=== PATIENT | male | born 1990 | race African-American/Black ===

== ENCOUNTER 2020-04-10 13:32 | Inpatient (IN) | payer MEDICAID ==
[2020-04-09 21:40] VITALS: BP 159/95
[~2020-04-10] VITALS: Ht 182.9 cm; Wt 126.3 kg
[2020-04-10] MEDS ORDERED: ONDANSETRON PF 4 MG/2 ML VIAL. IV ONE (13:45)
[2020-04-10] MEDS ORDERED: fentaNYL PF VIAL 100 MCG/2 ML VIAL IV ONE (13:45)
[2020-04-10 13:55] LABS: BASO % 1 % (0-3); EOS # 0.4 x10^3/uL (0.0-0.7); EOS % 6 % (0-3); HEMATOCRIT 32.7 % (39.0-53.0); HEMOGLOBIN 10.7 g/dL (13.0-17.5); LYMPH # 1.5 x10^3/uL (1.0-4.8); LYMPH % 26 % (24-48); MEAN CORPUSCULAR HEMOGLOBIN 26 pg (25-35); MEAN CORPUSCULAR HGB CONC 33 g/dL (31-37); MEAN CORPUSCULAR VOLUME 80 fL (79-100); MONO # 0.6 x10^3/uL (0.0-1.1); MONO % 10 % (0-9); NEUT # 3.2 x10^3/uL (1.8-7.7); NEUT % 57 % (31-73); PLATELET COUNT 294 x10^3/uL (140-400); RED BLOOD COUNT 4.08 x10^6/uL (4.30-5.70); RED CELL DISTRIBUTION WIDTH 14.7 % (11.5-14.5); WHITE BLOOD COUNT 5.6 x10^3/uL (4.0-11.0)
[2020-04-10] MEDS ORDERED: IOHEXOL 350 MG/ML 100 ML VIAL. IV ONE (14:00)
[2020-04-10 14:09] LABS: PROTHROMBIN TIME PATIENT 12.8 SEC (11.7-14.0)
[2020-04-10] MEDS ORDERED: CONTRAST GIVEN. MC PRN (14:15)
[2020-04-10 14:16] LABS: CALCIUM 7.5 mg/dL (8.5-10.1); CREATININE 16.4 mg/dL (0.7-1.3); GFR 4.2; POTASSIUM 5.2 mmol/L (3.5-5.1)
[2020-04-10 14:19] LABS: ALBUMIN 3.7 g/dL (3.4-5.0); ALBUMIN/GLOBULIN RATIO 0.8 (1.0-1.7); TOTAL BILIRUBIN 0.5 mg/dL (0.2-1.0); TOTAL PROTEIN 8.1 g/dL (6.4-8.2)
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
[2020-04-10] MEDS ORDERED: HYDROmorphone 2 MG/ML VIAL ONE (15:41)
[2020-04-10] MEDS ORDERED: HYDROmorphone 2 MG/ML VIAL IVP ONE (15:45)
[2020-04-10] MEDS ORDERED: TETANUS AND DIPHTHERIA TOX/PF 0.5 ML DISP.SYRIN. VAX IM ONE (16:00)
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
[2020-04-10] MEDS ORDERED: ONDANSETRON PF 4 MG/2 ML VIAL. IV PRN ×2 (16:15→17:45)
[2020-04-10] MEDS ORDERED: fentaNYL PF VIAL 100 MCG/2 ML VIAL IV PRN (16:15)
[2020-04-10] MEDS ORDERED: ACETAMINOPHEN 325 MG TABLET. PO PRN (16:15)
[2020-04-10] MEDS ORDERED: DIPH,PERTUSS(ACELL),TET VAC/PF 0.5 ML SYRINGE. VAX IM ONE (16:30)
[2020-04-10] MEDS ORDERED: DIALYSIS PATIENT. MC PRN ×2 (17:15)
[2020-04-10] MEDS ORDERED: DEXTROSE 50% 25 GM / 50ML DISP.SYRIN. IV PRN ×2 (17:45→20:15)
[2020-04-10 20:31] LABS: CALCIUM 7.8 mg/dL (8.5-10.1); CREATININE 9.9 mg/dL (0.7-1.3); GFR 7.6; PHOSPHORUS 4.1 mg/dL (2.6-4.7); POTASSIUM 4.4 mmol/L (3.5-5.1)
--- NOTE | 2020-04-10 21:40 | NUR ---
Patient admitted to room 430 per bed from Dialysis. Patient oriented to room, call light, be and POC. Assessment completed. See admission assessment/documentation. Call light in reach, Patient instructed to call for assistance. Will monitor.
[2020-04-10] MEDS: INSULIN LISPRO 300 UNITS/3 ML VIAL. SQ SCH (22:30)
[2020-04-10] MEDS: INSULIN GLARGINE SYRINGE. SQ SCH (22:30)
[2020-04-10 23:00] VITALS: BP 159/95
[2020-04-11] MEDS: HYDROcodone/APAP 5/325MG 1 TAB TABLET PO PRN ×3 (02:26→20:57)
[2020-04-11] MEDS ORDERED: ATOR80TA72 PO (02:34)
[2020-04-11] MEDS ORDERED: FOLI1TAB30 PO (02:35)
[2020-04-11] MEDS ORDERED: CARV12.5 PO (02:35)
[2020-04-11] MEDS ORDERED: ALLO100T PO (02:36)
[2020-04-11] MEDS ORDERED: FURO80TA3 PO (02:37)
[2020-04-11] MEDS ORDERED: SODI650T PO (02:37)
[2020-04-11] MEDS ORDERED: GLIP5TAB10 PO (02:38)
[2020-04-11] MEDS ORDERED: OMEP20TA8 PO (02:39)
[2020-04-11 03:00] VITALS: BP 162/94
[2020-04-11 05:45] LABS: BASO % 1 % (0-3); EOS # 0.3 x10^3/uL (0.0-0.7); EOS % 5 % (0-3); HEMATOCRIT 30.8 % (39.0-53.0); HEMOGLOBIN 10.2 g/dL (13.0-17.5); LYMPH % 18 % (24-48); MEAN CORPUSCULAR HEMOGLOBIN 26 pg (25-35); MEAN CORPUSCULAR HGB CONC 33 g/dL (31-37); MEAN CORPUSCULAR VOLUME 80 fL (79-100); MONO # 0.6 x10^3/uL (0.0-1.1); MONO % 11 % (0-9); NEUT # 3.7 x10^3/uL (1.8-7.7); NEUT % 66 % (31-73); PLATELET COUNT 249 x10^3/uL (140-400); RED BLOOD COUNT 3.85 x10^6/uL (4.30-5.70); WHITE BLOOD COUNT 5.6 x10^3/uL (4.0-11.0)
--- NOTE | 2020-04-11 06:34 | NUR ---
Consult called to answering service for Dr. Rizzo at [phone], message left with Sonia.
[2020-04-11 07:00] VITALS: BP 155/90
[2020-04-11] MEDS: INSULIN LISPRO 300 UNITS/3 ML VIAL. SQ SCH ×4 (07:30→21:00)
[2020-04-11] MEDS: AMOXICILLIN/K CLAV 500/125MG TABLET. PO SCH (07:50)
--- NOTE | 2020-04-11 08:00 | NUR ---
Transferred to dialysis by bed.
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
[2020-04-11] MEDS ORDERED: IV NORMAL SALINE 1000ML BAG 1,000 ML IV PRN ×2 (08:46)
[2020-04-11] MEDS ORDERED: DIALYSIS PATIENT. MC PRN ×2 (09:00)
[2020-04-11] MEDS ORDERED: ALBUMIN HUMAN 25% 200 ML IV PRN (09:00)
--- NOTE | 2020-04-11 10:41 | NUR ---
SW following. Discussed with RN, pt from home with spouse, room air, regular diet. Per Rn, pt wanting to leave today, however discussion whether pt needs surgery or not. Pt does dialysis, SW to meet with pt to determine where pt does dialysis. Per chart, pt lives in [facility] and has [place] Medicaid. MALORIE will continue to follow. Addendum: 04/11/20 at 1629 by SHIV ESPANA Pt does dialysis at [facility] (ph: [phone]). MALORIE verified pt is a , , dialysis patient and does NOT need a COVID-19 test prior to returning, unless showing signs or symptoms of coronavirus. RN notified. MALORIE will continue to follow.
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
--- NOTE | 2020-04-11 12:12 | NUR ---
Returned from dialysis by bed. No c/o at this time. Cont. monitor.
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
[2020-04-11 15:00] VITALS: BP 132/88
[2020-04-11 19:00] VITALS: BP 129/87
[2020-04-11] MEDS: LACTOBACILLUS RHAMNOSUS GG 1 CAPSULE. PO SCH (20:56)
--- NOTE | 2020-04-11 20:56 | NUR ---
Patient educated on indications for scheduled Lantus and Darbepoetin alexey; patient refused administration at this time.
[2020-04-11] MEDS: INSULIN GLARGINE SYRINGE. SQ SCH (21:00)
[2020-04-11] MEDS ORDERED: DARBEPOETIN ALFA 60 MCG/0.3 ML DISP.SYRIN. SQ SCH (21:00)
[2020-04-11 23:00] VITALS: BP 144/87
[2020-04-12 03:00] VITALS: BP 160/101
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
[2020-04-12 05:36] LABS: BASO % 1 % (0-3); EOS # 0.2 x10^3/uL (0.0-0.7); EOS % 4 % (0-3); HEMATOCRIT 33.9 % (39.0-53.0); LYMPH # 1.2 x10^3/uL (1.0-4.8); LYMPH % 20 % (24-48); MEAN CORPUSCULAR HEMOGLOBIN 26 pg (25-35); MEAN CORPUSCULAR HGB CONC 33 g/dL (31-37); MEAN CORPUSCULAR VOLUME 80 fL (79-100); MONO # 0.9 x10^3/uL (0.0-1.1); MONO % 15 % (0-9); NEUT # 3.6 x10^3/uL (1.8-7.7); NEUT % 60 % (31-73); PLATELET COUNT 235 x10^3/uL (140-400); RED BLOOD COUNT 4.23 x10^6/uL (4.30-5.70); RED CELL DISTRIBUTION WIDTH 14.8 % (11.5-14.5); WHITE BLOOD COUNT 6.1 x10^3/uL (4.0-11.0)
[2020-04-12 05:48] LABS: CALCIUM 8.3 mg/dL (8.5-10.1); CREATININE 11.8 mg/dL (0.7-1.3); GFR 6.2; POTASSIUM 4.9 mmol/L (3.5-5.1)
[2020-04-12 07:00] VITALS: BP 151/99
[2020-04-12] MEDS: INSULIN LISPRO 300 UNITS/3 ML VIAL. SQ SCH ×2 (07:22→11:30)
[2020-04-12] MEDS: AMOXICILLIN/K CLAV 500/125MG TABLET. PO SCH (08:03)
[2020-04-12] MEDS: HYDROcodone/APAP 5/325MG 1 TAB TABLET PO PRN (08:03)
[2020-04-12] MEDS: LACTOBACILLUS RHAMNOSUS GG 1 CAPSULE. PO SCH (08:03)
--- NOTE | 2020-04-12 10:03 | NUR ---
SW following. Discussed with RN. Dr. Torres advised pt will be discharging today. SW to notified [facility] of discharge. RN advised no SW needs.
[2020-04-12 11:00] VITALS: BP 150/92
[2020-04-12] MEDS ORDERED: HYDR-2761 PO (11:35)
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
--- NOTE | 2020-04-12 13:01 | NUR ---
Crutches ordered and given to patient in room 430. Discharge instructions and belongings reviewed with patient, verbalized understanding. Patient will be escorted out via wheelchair by Clementina PEREIRA accompanied by his Girlfriend.
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
--- NOTE | 2020-04-12 17:19 | NUR ---
Wound Care Pt discharged prior to arrival of WC team to floor.
== END 2020-04-12 14:28 | disposition home or self-care (01) | DRG 913 ==
LOC: ER 13:32 → ED HOLD 15:23 → 4 NORTH 19:31
PROVIDERS: ADMIT Internal Medicine; ATTEND Internal Medicine
PROC: 5A1D70Z Performance of Urinary Filtration, Intermittent, Less than 6 Hours Per Day (ICD-10-PCS; 2020-04-10)
PROC: 5A1D70Z Performance of Urinary Filtration, Intermittent, Less than 6 Hours Per Day (ICD-10-PCS; principal; 2020-04-11)
DX: S71.142A Puncture wound with foreign body, left thigh, initial encounter (principal); N18.6 End stage renal disease; I12.0 Hypertensive chronic kidney disease with stage 5 chronic kidney disease or end stage renal disease; E87.5 Hyperkalemia; D64.9 Anemia, unspecified; E10.22 Type 1 diabetes mellitus with diabetic chronic kidney disease; E21.3 Hyperparathyroidism, unspecified; E78.00 Pure hypercholesterolemia, unspecified; K21.9 Gastro-esophageal reflux disease without esophagitis; M10.9 Gout, unspecified; W32.0XXA Accidental handgun discharge, initial encounter; Z76.82 Awaiting organ transplant status; Z79.4 Long term (current) use of insulin; Z79.899 Other long term (current) drug therapy; Z82.49 Family history of ischemic heart disease and other diseases of the circulatory system; Z83.3 Family history of diabetes mellitus; Z99.2 Dependence on renal dialysis
CPT/HCPCS: 36415; 75635; 80048; 80053; 82962; 84100; 85025; 85610; 90471; 90715; 96365; 96375; J0696; J1170; J2405; J3010; Q9967; 97116-GP; 97535-GO; 99285-25; G0378